=== PATIENT | female | born 1990 | race Two or more races ===

== ENCOUNTER 2016-10-13 13:45 | Emergency (ER) | payer OTHER ==
--- NOTE | ~2016-10-13 | US106 ---
[facility] A Service of [facility] RADIOLOGY TEXT RESULTS PATIENT: HYACINTH VALENZUELA LOCATION: [facility] : [birth year] UNIT #: [id number] AGE: [address]: Barbie Sandy MD SEX: F ORDER DR: [id number] [facility] [address] [place], [place] [address] [id number] E MR#: [id number] Acc #: [id number] NAME: HYACINTH VALENZUELA : 1990 SEX: F STUDY DATE/TIME: 10/13/2016 14:30 UNIT: [facility] ROOM: STUDY DESCRIPTION: US Preg Uterus Transvaginal Attending Physician: Barbie Sandy M.D. Ordering Physician: Barbie Sandy M.D. MEDICAL IMAGING REPORT This report is preliminary unless electronic signature is present EXAM Transvaginal and transabdominal pelvic ultrasound, 10/13/2016 HISTORY Left lower quadrant abdominal pain for 2 days. Patient is . Quantitative beta-HCG not available at this time. COMPARISON None. TECHNIQUE Transabdominal images performed for generalized visualization of the pelvic structures while transvaginal imaging was performed for more detail evaluation of the adnexal regions. FINDINGS The uterus measures 10.1 x 7.1 x 7.8 cm. Single viable intrauterine is demonstrated with crown-rump length approximately 4.06 mm. Detectable heart rate is in the range of 178 beats per minute. This study is not performed for detailed anatomic survey, but no acute findings are seen. No evidence of subchorionic hemorrhage. Left ovary measures 4 x 3.8 x 3.4 cm and contains a cyst measuring 2.8 x 2.8 x 3 cm. The left ovary demonstrates normal color and spectral Doppler flow. The right ovary measures 3.7 x 1.6 x 2.5 cm without cystic or solid abnormality and demonstrates normal color and spectral Doppler flow. No pelvic free fluid is evident. IMPRESSION 1. Single viable intrauterine with heart 178 beats per minute. Estimated sonographic gestational age 11 weeks, 1 day with estimated [facility] A Service of [facility] RADIOLOGY TEXT RESULTS PATIENT: HYACINTH VALENZUELA LOCATION: [facility] : [birth year] UNIT #: [id number] AGE: [address]: Barbie Sandy MD SEX: F ORDER DR: date delivery 05/03/2017. 2. 3 cm left ovarian cyst. 3. Normal flow to each ovary. 4. No acute findings. Dictated by... Niecy Turner M.D. THIS IS AN ELECTRONICALLY VERIFIED REPORT Niecy Turner M.D. at 10/16/2016 8:37 AM STUART/ortiz TD: 10/13/2016 21:07 JOB #: [id number] MEDICAL IMAGING REPORT Page 1 of 1 COPY
[2016-10-13 14:07] LABS: BASOPHIL% 0.5 % (0-2.5); EOSINOPHIL% 0.3 % (0.0-7.0); HEMATOCRIT 40.2 % (35.0-45.0); HEMOGLOBIN 13.2 gm/dL (12.0-16.0); LYMPHOCYTE# 1.4 X10e3 (1.0-3.5); LYMPHOCYTE% 23.9 % (17.0-45.0); MEAN CELL VOLUME 92.2 FL (83-96); MEAN CORPUSCULAR HEMOGLOBIN 30.2 PG (28-34); MEAN CORPUSCULAR HGB CONC 32.7 g/dL (30-36); MEAN PLATELET VOLUME 6.9 FL (6.5-11.5); MONOCYTE# 0.6 X10e3 (0-1.0); MONOCYTE% 9.8 % (3.0-12.0); NEUTROPHIL# 3.9 X10e3 (1.5-7.1); NEUTROPHIL% 65.5 % (40-75); PLATELET COUNT 232 X10e3 (140-420); RED BLOOD COUNT 4.36 X10e (3.90-5.30)
[2016-10-13 14:18] LABS: DIFF IND NO
[2016-10-13 14:35] LABS: BUN/CREATININE RATIO 17.5; CALCIUM SERUM 9.4 mg/dL (8.4-10.2); CREATININE SERUM 0.4 mg/dL (0.6-1.4); GLOM FILT RATE Estimated 144.8 mL/min (>60); POTASSIUM 3.6 mmol/L (3.5-5.1)
[2016-10-13 16:50] LABS: URINE SOURCE CLEAN CATCH
[2016-10-13 17:09] LABS: URINE APPEARANCE CLEAR; URINE BILIRUBIN NEG (NEG); URINE BLOOD NEG (NEG); URINE COLOR YELLOW; URINE GLUCOSE NEG (NEG); URINE KETONE NEG (NEG); URINE LEUKOCYTE ESTERASE TRACE (NEG); URINE NITRATE NEG (NEG); URINE PROTEIN NEG (NEG); URINE SPECIFIC GRAVITY 1.009 (1.003-1.035); URINE UROBILINOGEN 0.2 MG/DL (NEG)
[2016-10-13 17:12] LABS: CULTURE INDICATED? YES; U HYALINE CASTS AUWI 0-2 /[LPF]; URBCS1 AUWI 0-2 /[HPF] (0-2); URINE BACTERIA AUWI 1+ (NEGATIVE); URINE SQUAMOUS EPITHELIAL CELL OCC /[HPF]; UWBCS1 AUWI 0-2 (0-5)
== END 2016-10-13 18:00 | disposition home or self-care (01) ==
LOC: CED 13:45
PROVIDERS: Emergency Medicine
DX: O23.41 Unspecified infection of urinary tract in pregnancy, first trimester (principal); Z3A.11 11 weeks gestation of pregnancy
CPT/HCPCS: 36415; 76817; 80048; 81003; 84702; 84703; 85025; 86900; 86901; 87086; 99284